=== PATIENT | female | born 1945 | race Caucasian/White ===

== ENCOUNTER 2017-10-07 22:57 | Emergency (ER) | payer OTHER ==
[~2017-10-07] VITALS: Ht 149.9 cm; Wt 49.0 kg
[2017-10-07 23:14] VITALS: Ht 149.9 cm; Wt 49.0 kg
[2017-10-08 01:12] VITALS: BP 135/91
== END 2017-10-08 01:12 | disposition home or self-care (01) ==
LOC: ED 22:57
DX: M19.031 Primary osteoarthritis, right wrist (principal); E78.00 Pure hypercholesterolemia, unspecified